=== PATIENT | male | born 1945 | race Caucasian/White ===

== ENCOUNTER → 2017-03-27 | Outpatient (CLI) | payer MEDICARE, OTHER ==
--- NOTE | 2017-03-27 10:43 | CT ---
EXAMINATION TYPE: CT chest wo con DATE OF EXAM: 03/27/2017 COMPARISON: NONE HISTORY: Chronic cough CT DLP: 642.6 mGycm, Automated exposure control for dose reduction was used. CONTRAST: Performed injected with 0 mL of Omnipaque 350. TECHNIQUE: Axial images were obtained at 5 mm thick sections. Reconstructed images are reviewed on [employer] computer in the coronal plane. FINDINGS: Thyroid is not visualized. There is a 0.4 cm calcification posterior left lung base. Series 4 image 32. Additional punctate amanda cifications appear to be in the posterior lateral right lung base, series 4 images 31-32. Punctate de nsities in the posterior left midlung. Series 4 image 27. There is a 0.4 cm density within the technology consultant ior medial superior segment right lower lobe. Series 4 image 23. No enlarged mediastinal or hilar adenopathy is evident. There are scattered small shotty lymph nodes such as at the left main pulmonary artery region The ascending aorta diameter at the level of the ma in pulmonary artery is 3.8 cm. The main pulmonary artery diameter at the bifurcation is 2.[address] sections are obtained through the upper abdomen. Abdomen is essentially unremarkable. IMPRESSIONS: 1. Multiple small mid posterior lung nodules measuring less than 0.4 cm. Some of these may be calcifi cation. Recommend follow-up CT chest in 6 months.
== END | disposition home or self-care (01) ==
LOC: RADCTMAIN 06:54
PROVIDERS: ATTEND Internal Medicine
DX: R91.8 Other nonspecific abnormal finding of lung field (principal)
CPT/HCPCS: 71250